=== PATIENT | female | born 1960 | race Caucasian/White ===

== ENCOUNTER 2018-08-22 06:28 | Day surgery (SDC) | payer OTHER ==
[2018-08-16 15:10] LABS: BASOPHILS # (AUTO) 0.1 X10'3 (0-0.2); BASOPHILS % (AUTO) 1.2 % (0-1); EOSINOPHILS # (AUTO) 0.1 X10'3 (0-0.9); EOSINOPHILS % (AUTO) 1.6 % (0-6); LYMPHOCYTES # (AUTO) 1.5 X10'3 (1.1-4.8); LYMPHOCYTES % (AUTO) 28.6 % (21-51); MEAN CORPUSCULAR HEMOGLOBIN 31.9 PG (27.0-31.0); MEAN CORPUSCULAR HGB CONC 35.2 % (33.0-36.5); MEAN CORPUSCULAR VOLUME 90.6 FL (78-98); MEAN PLATELET VOLUME 7.8 FL (7.4-10.4); MONOCYTES # (AUTO) 0.4 X10'3 (0-0.9); MONOCYTES % (AUTO) 7.4 % (2-12); NEUTROPHILS # (AUTO) 3.1 X10'3 (1.8-7.7); NEUTROPHILS % (AUTO) 61.2 % (42-75); PRE OP HEMATOCRIT 36.1 % (35.0-45.0); PRE OP HEMOGLOBIN 12.7 g/dL (12.0-16.0); PRE OP PLATELET COUNT 311 X10'3 (140-440); RED BLOOD COUNT 3.98 X10'6 (4.20-5.60); RED CELL DISTRIBUTION WIDTH 11.9 % (11.5-14.5)
[2018-08-16 15:23] LABS: ALBUMIN 3.9 G/DL (3.4-5.0); ALBUMIN/GLOBULIN RATIO 1.1 (1.1-1.5); ALKALINE PHOSPHATASE 77 IU/L (46-116); BLOOD UREA NITROGEN 22 MG/DL (7-18); BUN/CREATININE RATIO 23.2 (6.6-38.0); CALCIUM 8.6 MG/DL (8.5-10.1); CHLORIDE 104 MMOL/L (99-107); CREATININE 0.95 MG/DL (0.40-0.90); PRE OP ALT 27 U/L (30-65); PRE OP ANION GAP 11 (8-16); PRE OP AST 18 U/L (10-37); PRE OP BILIRUB, TOTAL 0.3 MG/DL (0.0-1.0); PRE OP GLUCOSE 99 MG/DL (70-104); PRE OP POTASSIUM 3.5 MMOL/L (3.4-5.1); PRE OP SODIUM 140 MMOL/L (135-145); TOTAL CARBON DIOXIDE 25.1 MMOL/L (24-32); TOTAL PROTEIN 7.3 G/DL (6.4-8.2); eGFR 60 ML/MIN
[~2018-08-22] VITALS: Ht 170.2 cm; Wt 72.6 kg
[2018-08-22] VITALS (9 sets, daily range): BP systolic 97–119; BP diastolic 63–82
[~2018-08-22 06:28] MED LIST: BIOT1TAB PO; CHOL100046 PO; ESTR10TA4 VG; ESTR1TAB28 PO; GLUC-133 PO; LEVO25TA2 PO; MILN100T PO; MULT-1085 PO; VITA1TAB29 PO; ceFAZolin 2gm in dextrose, iso 100 ML IV ONE; cefazolin/dext.iso 2gm/100 ML IV ONE; famotidine 20mg tablet PO ONE; oxyCODONE SR 10mg (sust. release) tab -2 tabs (20mg) PO ONE; ringers solution, lacted 1,000 ML IV SCH; scopolamine 1.5mg patch.TD72 TD ONE
[2018-08-22] MEDS ORDERED: LACTC PO (06:52)
[2018-08-22] MEDS ORDERED: LIDOcaine 1% (10mg/ml) 2ml vial ONE (06:56)
[2018-08-22] MEDS ORDERED: ROPIVAcaine 0.5% (5mg/ml) 30ml vial ONE (08:12)
[2018-08-22] MEDS ORDERED: cloNIDine hcl/PF 100mcg/ml inj ONE (08:12)
[2018-08-22] MEDS ORDERED: midazolam 2 mg/2 ml injection ONE (08:15)
[2018-08-22] MEDS ORDERED: fentaNYL/PF 50MCG/1 ML 2ML syringe ONE (08:15)
[2018-08-22] MEDS ORDERED: propofol inj 20 ML IV ONE (08:19)
[2018-08-22] MEDS ORDERED: dexamethasone sod phosphate 4mg/ml inj. ONE (08:19)
[2018-08-22] MEDS ORDERED: propofol 10mg/ml 20ml vial IV ONE (08:26)
[2018-08-22] MEDS ORDERED: sevoflurane 250ml liquid IH ONE (08:26)
[2018-08-22] MEDS ORDERED: meperidine/PF 25mg/ml syringe IV PRN ×2 (10:15)
[2018-08-22] MEDS ORDERED: ringers solution, lacted 1,000 ML IV SCH (10:15)
[2018-08-22] MEDS ORDERED: ondansetron/PF 4mg/2ml inj IV PRN (10:15)
[2018-08-22] MEDS ORDERED: morphine 4 MG/ML inj SYRINge IV PRN ×2 (10:15)
[2018-08-22] MEDS ORDERED: proCHLORperazine 10 MG/2 ml inj IV PRN (10:15)
[2018-08-22] MEDS ORDERED: ondansetron/PF 4mg/2ml inj ONE (10:18)
[2018-08-22] MEDS: meperidine/PF 25mg/ml syringe IV PRN ×2 (10:53→11:02)
== END 2018-08-22 11:50 | disposition home or self-care (01) ==
LOC: PAS 06:28
PROVIDERS: ATTEND Orthopaedic Surgery
DX: M23.52 Chronic instability of knee, left knee (principal); M89.562 Osteolysis, left lower leg; E03.9 Hypothyroidism, unspecified; M19.90 Unspecified osteoarthritis, unspecified site; F32.9 Major depressive disorder, single episode, unspecified; F41.8 Other specified anxiety disorders; Z72.89 Other problems related to lifestyle; Z90.710 Acquired absence of both cervix and uterus; Z90.89 Acquired absence of other organs; Z88.1 Allergy status to other antibiotic agents; Z88.2 Allergy status to sulfonamides; Z98.890 Other specified postprocedural states; Z79.899 Other long term (current) drug therapy; Z88.8 Allergy status to other drugs, medicaments and biological substances
CPT/HCPCS: 29888; 36415; 80053; 85025; 93005; A6446; A6449; C1713; C1762; J0690; J0735; J1100; J2175; J2250; J2405; J2704; J2795; J3010; J3490; J7030; J7120; A7000